=== PATIENT | male | born 1935 | race Caucasian/White ===

== ENCOUNTER → 2016-11-03 | Outpatient (CLI) | payer BC ==
[~2016-11-03] MED LIST: ATOR-24 PO; CHOL100010 PO; COEN150C PO; DOMPERIDONE 10MG PO; FAMO1TAB48 PO; METHTAB2 PO; PANT40TA PO; TAMS0.4C59 PO; WARF5TAB90 PO; WARF7.5T PO
== END | disposition home or self-care (01) ==
LOC: C.LAB 10:24
PROVIDERS: ATTEND Urology
DX: R97.20 Elevated prostate specific antigen [PSA] (principal); N40.1 Benign prostatic hyperplasia with lower urinary tract symptoms